=== PATIENT | female | born 1935 | race Caucasian/White ===

== ENCOUNTER 2017-01-17 09:51 | Outpatient (CLI) | payer OTHER ==
[~2017-01-17 09:51] MED LIST: ACETAMINOPHEN500 MG PO; ASPIRIN ADULT L81 MG PO; HYDROCHLOROTHIA25 MG PO; LEVOTHYROXINE100 MCG PO; LOPRESSOR50 MG PO; LORAZEPAM0.5 MG PO; POTASSIUM CHLO10 ME2 PO
--- NOTE | 2017-01-17 11:54 | DIAGNOSTIC IMAGING REPORT ---
PROCEDURE: MR BRAIN WITHOUT CONTRAST INDICATION: DYSARTHRIA TECHNIQUE: Multiplanar multisequence MRI imaging of the brain without contrast. COMPARISON: None. FINDINGS: There is a mild atrophy. Basal cisterns are patent. Flow voids in the major intracranial vessels are normal. There is a marked increase in signal in the periventricular white matter secondary to small-vessel ischemic disease. No restricted diffusion to suggest acute ischemia. No evidence of acute or chronic intraparenchymal or extra-axial hemorrhage. No mass, mass effect, or midline shift. Normal signal in the visible bones. The sinuses are normally aerated. Visible extracranial soft tissues including the orbits are normal. IMPRESSION: 1. Marked periventricular small-vessel ischemic disease.
--- NOTE | 2017-01-17 11:57 | DIAGNOSTIC IMAGING REPORT ---
PROCEDURE: US BILATERAL CAROTID DOPPLER INDICATION: TRANSIENT CEREBRAL ISCHEMIA TECHNIQUE: Color Doppler duplex imaging of the carotid and vertebral vessels. COMPARISON: None. FINDINGS: Right carotid system: Right internal carotid 16-49% stenosis. Left carotid system: Left internal carotid 16-49% stenosis. Vertebral System: Antegrade vertebral artery flow bilaterally. Right common carotid artery peak systolic velocity 47.8 cm/second. Right internal carotid artery peak systolic velocity 113.9 cm/second. Right external carotid artery peak systolic velocity 44.3 cm/second. Right uezroaab-zx-yjcphb carotid artery ratio 2.3 Right vertebral artery peak systolic velocity 27 cm/second. Left common carotid artery peak systolic velocity 53.4 cm/second. Left internal carotid artery peak systolic velocity 110.7 cm/second. Left external carotid artery peak systolic velocity 38.5 cm/second. Left arapiafx-un-ygkteq carotid artery ratio 2.0 Left vertebral artery peak systolic velocity 18.6 cm/second. IMPRESSION: 1. No hemodynamically significant stenosis in either carotid system. Bilateral internal carotid narrowing of 16-49%. 2. Antegrade vertebral artery flow bilaterally. Velocity criteria are extrapolated from diameter data as defined by the Society of Radiologists in Ultrasound Consensus Conference, Radiology 2003; 229; 340-346.
--- NOTE | 2017-01-17 11:57 | DIAGNOSTIC IMAGING REPORT ---
PROCEDURE: US BILATERAL CAROTID DOPPLER INDICATION: TRANSIENT CEREBRAL ISCHEMIA TECHNIQUE: Color Doppler duplex imaging of the carotid and vertebral vessels. COMPARISON: None. FINDINGS: Right carotid system: Right internal carotid 16-49% stenosis. Left carotid system: Left internal carotid 16-49% stenosis. Vertebral System: Antegrade vertebral artery flow bilaterally. Right common carotid artery peak systolic velocity 47.8 cm/second. Right internal carotid artery peak systolic velocity 113.9 cm/second. Right external carotid artery peak systolic velocity 44.3 cm/second. Right uatdvugj-sp-nagnah carotid artery ratio 2.3 Right vertebral artery peak systolic velocity 27 cm/second. Left common carotid artery peak systolic velocity 53.4 cm/second. Left internal carotid artery peak systolic velocity 110.7 cm/second. Left external carotid artery peak systolic velocity 38.5 cm/second. Left sprthqrk-nz-xjwnaz carotid artery ratio 2.0 Left vertebral artery peak systolic velocity 18.6 cm/second. IMPRESSION: 1. No hemodynamically significant stenosis in either carotid system. Bilateral internal carotid narrowing of 16-49%. 2. Antegrade vertebral artery flow bilaterally. Velocity criteria are extrapolated from diameter data as defined by the Society of Radiologists in Ultrasound Consensus Conference, Radiology 2003; 229; 340-346.
== END 2017-01-17 23:00 | disposition home or self-care (01) ==
LOC: US SRH 09:51
DX: I65.23 Occlusion and stenosis of bilateral carotid arteries (principal); R90.82 White matter disease, unspecified